=== PATIENT | male | born 1985 | race Caucasian/White ===

== ENCOUNTER 2021-02-05 08:32 | Emergency (ER) | payer MEDICARE, MEDICAID, SELFPAY ==
[2021-02-05] VITALS (14 sets, daily range): BP systolic 122–157; BP diastolic 81–97; PULSE 63–74; RESP 12–20; TEMP 36.7; O2SAT 99–100
--- NOTE | ~2021-02-05 | US_ITS ---
EXAMINATION: US scrotum doppler EXAM DATE: 02/05/2021 09:57 INDICATION: Intermittent testicular pain since July, worse the last 2 weeks. TECHNIQUE: Multiple grayscale and Doppler images of the testicles and scrotum were obtained bilateral ly. There is no prior study for comparison. FINDINGS: Right testicle measures 5.3 x 2.8 x 2.1 cm and is morphologically normal. Low resistance Doppler marion w confirmed. The epididymis is unremarkable. Trace right hydrocele. Left testicle measures 5.3 x 3.5 x 2.2 cm and is morphologically normal. Low resistance Doppler flow confirmed and symmetric to contralateral side. The epididymis is unremarkable. There is no hydrocel e or varicocele. IMPRESSION: Trace right hydrocele. Reviewed, dictated and finalized at location A. IMPRESSION: Trace right hydrocele.
--- NOTE | 2021-02-05 09:30 | ED.GENADULT ---
HPI - General Adult General Chief complaint: Unspecified Stated complaint: ? hernia Time Seen by Provider: 02/05/21 08:37 Source: patient Mode of arrival: ambulatory Limitations: no limitations History of Present Illness HPI narrative: This is a 35-year-old male that presents the emergency department for testicular pain. Reports it has been present for months. The pain is squeezing. Associated with painful erections and dysuria. Also reports that he has been having frequent bowel movements. Reports 6 stools a day. Denies fever, abnormal penile discharge or rashes, vomiting, hematochezia, or hematuria. Related Data Allergies Allergy/AdvReac Type Severity Reaction Status Date / Time sulfamethoxazole Allergy Mild RASH Verified 02/05/21 10:23 trimethoprim Allergy Mild RASH Verified 02/05/21 10:23 Review of Systems Review of Systems: Narrative: CONSTITUTIONAL: Denies fever GASTROINTESTINAL: Reports diarrhea. Denies abdominal pain, nausea, vomiting GENITOURINARY: Reports dysuria. Denies hematuria. SKIN: Denies rash All systems reviewed & are unremarkable except as noted in HPI and below PMFSH Past Medical History Medical History (Updated 02/05/21 @ 10:26 by Anisa Corcoran PA-C) History of anxiety History of Asperger's syndrome Social History Social History (Updated 02/05/21 @ 09:33 by Anisa Corcoran PA-C) Substance use: never Exam Narrative: Exam Narrative: GENERAL: Well-appearing, well-nourished, and in no acute distress. HEAD: Normocephalic, atraumatic. EYES: EOMI. CHEST: Clear to auscultation. No respiratory distress. No wheezes rales or rhonchi HEART: Regular rate and rhythm. No murmur heard. Normal peripheral pulses. ABDOMEN: Soft, nontender, nondistended, normal active bowel sounds. EXTREMITIES: Normal range of motion. No edema. SKIN: Warm, dry, no rash. NEURO: No focal deficits. Alert and oriented x3. PSYCH: Normal mood and affect MALE GENITAL: Normal external genitalia. Mild clear penile discharge. No abnormal rashes or lesions. Testicles are normal in size and nontender. No erythema or edema noted Course Vital Signs Vital signs: Vital Signs Temperature 98.1 F 02/05/21 08:47 Pulse Rate 72 02/05/21 08:47 Respiratory Rate 14 02/05/21 08:47 Blood Pressure 157/97 H 02/05/21 08:47 Pulse Oximetry 100 02/05/21 08:47 Temperature 98.1 F 02/05/21 08:47 Pulse Rate 72 02/05/21 08:47 Respiratory Rate 14 02/05/21 08:47 Blood Pressure 157/97 H 02/05/21 08:47 Pulse Oximetry 100 02/05/21 08:47 Medical Decision Making MDM Narrative Medical decision making narrative: Patient presents to the emergency department with multiple complaints. Reporting testicular pain, penile pain, and multiple episodes of diarrhea. All of which have been ongoing for months. He is afebrile and nontoxic-appearing. Vitals are stable. CBC is without leukocytosis. Does show thrombocytopenia with platelets of 86. Metabolic panel and lipase without concerning findings. UA is without evidence of infection. Chlamydia, gonorrhea and trichomonas were sent. Ultrasound of the scrotum shows a trace right hydrocele. Otherwise normal-appearing testes with good testicular blood flow. Patient was updated on case findings. Will be given hematology for follow-up for thrombocytopenia. Will also be given urology for follow-up of testicular pain. Reports he already has some follow-up with the GI doctor for his ongoing diarrhea. Does not want to be presumptively treated for STDs. Would like to follow-up for results. He is stable and felt appropriate for further outpatient evaluation. He was given warnings to return to the ER Vital Signs Vital Signs: Vital Signs Temperature 98.1 F 02/05/21 08:47 Pulse Rate 72 02/05/21 08:47 Respiratory Rate 14 02/05/21 08:47 Blood Pressure 157/97 H 02/05/21 08:47 Pulse Oximetry 100 02/05/21 08:47 Temperature 98.1 F 02/05/21 08:47 Pulse Rate 72 02/05
[2021-02-05 09:31] LABS: Basophils Percent Auto 0.8 % (0.2-1.2); Eosinophils Percent Auto 0.8 % (0-4.4); Hematocrit 47.5 % (42.0-52.0); Hemoglobin 16.9 g/dL (14.0-18.0); Immature Granulocyte Absolute 0.01 K/mm3 (0.00-0.031); Immature Granulocyte Percent A 0.2 % (0-0.5); Immature Platelet Fraction Pct 2.7 % (0.9-11.2); Lymphocytes Absolute Auto 1.24 K/mm3 (0.9-3.2); Lymphocytes Percent Auto 24.2 % (18.3-44.2); Mean Corpuscular HGB Conc 35.6 g/dl (32-36); Mean Platelet Volume 9.6 fl (7.4-10.4); Monocytes Absolute Auto 0.5 K/mm3 (0.1-0.6); Monocytes Percent Auto 9.9 % (2.6-8.5); Neutrophils Absolute Auto 3.3 K/mm3 (1.3-6.7); Neutrophils Percent Auto 64.1 % (45.5-73.1); Platelet Count Result 86 k/mm3 (150-375); Red Blood Count 5.28 M/mm3 (4.6-6.20); Red Cell Distribution Width 11.9 % (11.5-14.5); White Blood Count 5.1 K/mm3 (4.5-10.0)
[2021-02-05 09:32] LABS: Add Urine Microscopic? NO; Appearance Urine Clear (Clear); Bilirubin Urine Negative (Negative); Blood Urine Negative (Negative); Color Urine Straw (Yellow); Glucose Urine UA Negative (Negative); Ketones Urine Negative (Negative); Leukocyte Esterase Ur Negative LEU/UL (Negative); Nitrate Urine Negative (Negative); Protein Urine Negative (Negative); Urobilinogen Urine Negative mg/dL (<2.0)
[2021-02-05 09:40] LABS: Alanine Aminotransferase 34 U/L (4-50); Albumin Level 4.3 g/dL (3.5-5.1); Alkaline Phosphatase 50 U/L (38-126); Anion Gap 3 mmol/L (8-16); Aspartate Amino Transferase 42 U/L (17-59); Bilirubin,Total 1.3 mg/dL (0.2-1.3); Blood Urea Nitrogen 15 mg/dL (9-20); Calcium 9.4 mg/dL (8.4-10.2); Carbon Dioxide 31 mmol/L (22-30); Chloride 104 mmol/L (98-107); Estimated CRCL calculation 125 ml/min; Estimated Glomerular Filt Rate > 60; Glucose 88 mg/dL (75-110); Lipase 138 U/L (23-300); Sodium 138 mmol/L (137-145)
[2021-02-05 09:57] LABS: Specific Grav Ur 1.003 (1.001-1.035)
== END 2021-02-05 10:40 | disposition home or self-care (01) ==
PROVIDERS: Physician Assistant; Emergency Provider Emergency Medicine
DX: D69.6 Thrombocytopenia, unspecified (principal); N43.3 Hydrocele, unspecified
CPT/HCPCS: 36415; 76870; 80053; 81003; 83690; 85025; 85055; 87491; 87591; 87661; 93976; 99284

== ENCOUNTER 2023-07-07 06:43 | Emergency (ER) | payer MEDICARE, MEDICAID, SELFPAY ==
[2023-07-07] VITALS (9 sets, daily range): BP systolic 106–140; BP diastolic 59–88; PULSE 59–91; RESP 14–20; TEMP 36.6; O2SAT 98–100
--- NOTE | ~2023-07-07 | XR_ITS ---
Clinical Indication: Chest pain AP and lateral views of the chest: Comparison: 06/17/2009 Findings: The lungs are clear, without evidence of focal consolidation or pleural effusion. Cardiome diastinal silhouette is within normal limits. Bones and soft tissues are unremarkable. Impression: Normal chest. Reviewed, dictated and finalized at location . Impression: Normal chest.
--- NOTE | 2023-07-07 06:45 | ECG_ITS ---
Measurements Intervals Liberal Rate: 65 P: 48 MO: 145 QRS: -5 QRSD: 94 T: 33 QT: 371 QTc: 388 Interpretive Statements SINUS RHYTHM NORMAL ECG NO PREVIOUS ECG AVAILABLE FOR COMPARISON Electronically Signed On 07-07-2023 16:55:34 CDT by Leonel Logan M.D.
[2023-07-07] MEDS: ASPIRIN 81 MG CHEWABLE TABLET 324 MG PO (06:58)
[2023-07-07 07:09] LABS: Basophils Percent Auto 0.7 % (0.2-1.2); Eosinophils Absolute Auto 0.1 K/mm3 (0-0.3); Hematocrit 46.6 % (42.0-52.0); Hemoglobin 16.7 g/dL (14.0-18.0); Immature Granulocyte Absolute 0.01 K/mm3 (0.00-0.031); Immature Granulocyte Percent A 0.2 % (0-0.5); Immature Platelet Fraction Pct 2.9 % (0.9-11.2); Lymphocytes Absolute Auto 1.83 K/mm3 (0.9-3.2); Lymphocytes Percent Auto 31.4 % (18.3-44.2); Mean Corpuscular HGB Conc 35.8 g/dl (32-36); Mean Corpuscular Hemoglobin 31.5 pg (26-34); Mean Corpuscular Volume 87.9 fl (80-100); Mean Platelet Volume 9.8 fl (7.4-10.4); Monocytes Absolute Auto 0.5 K/mm3 (0.1-0.6); Monocytes Percent Auto 7.7 % (2.6-8.5); Neutrophils Absolute Auto 3.4 K/mm3 (1.3-6.7); Platelet Count Result 100 k/mm3 (150-375); Red Cell Distribution Width 11.7 % (11.5-14.5); White Blood Count 5.8 K/mm3 (4.5-10.0)
[2023-07-07 07:20] LABS: INR 1.1; Prothrombin Time 14.4 Seconds (11.1-14.7)
[2023-07-07 07:21] LABS: Alanine Aminotransferase 17 U/L (6-50); Albumin Level 4.6 g/dL (3.5-5.1); Alkaline Phosphatase 57 U/L (38-126); Anion Gap 12 mmol/L (8-16); Aspartate Amino Transferase 28 U/L (17-59); Bilirubin,Total 2.2 mg/dL (0.2-1.3); Blood Urea Nitrogen 11 mg/dL (9-20); Carbon Dioxide 22 mmol/L (22-30); Chloride 104 mmol/L (98-107); Estimated CRCL calculation 94 ml/min; Estimated Glomerular Filt Rate > 60; Glucose 101 mg/dL (65-110); Lipase 189 U/L (23-300); Partial Thromboplastin Time 29.4 SECONDS (22.3-36.8); Potassium 3.6 mmol/L (3.4-5.0); Sodium 138 mmol/L (137-145)
[2023-07-07 07:32] LABS: Troponin I < 0.012 ng/mL (0.000-0.034)
--- NOTE | 2023-07-07 08:24 | ED.CHESTPAIN ---
HPI - Chest Pain General Chief Complaint: Chest Pain Stated Complaint: Chest pain Time Seen by Provider: 07/07/23 06:59 History of Present Illness HPI narrative: Patient is a 38-year-old male who presents ER with left-sided chest pain. Has been occurring over the last week. It occurs for several seconds at a time and then will occur every 30 minutes. No recent trauma. No known aggravating factors. Usually worse in the evenings when he lays down. He does get sweaty when this occurs. He is unsure if that is related to anxiety. No dyspnea. No pain with deep breath or hemoptysis. No runny nose or sore throat or productive cough. No personal history of heart disease. Reports he has 2 grandfathers that had heart issues but no one with early cardiac disease. Related Data Allergies Allergy/AdvReac Type Severity Reaction Status Date / Time sulfamethoxazole Allergy Mild RASH Verified 02/09/21 11:01 trimethoprim Allergy Mild RASH Verified 02/09/21 11:01 sulfamethizole Allergy Unknown Verified 02/09/21 11:01 Review of Systems Review of Systems: All systems reviewed & are unremarkable except as noted in HPI and below Constitutional: Constitutional: Denies chills, Denies fatigue and Denies fever(s) Comments: Positive diaphoresis ENT: Denies nasal congestion and Denies sore throat Cardiovascular: Cardiovascular: Reports chest pain, Denies rapid heart rate and Denies radiating jaw, neck or arm pain Gastrointestinal: Gastrointestinal: Denies abdominal pain, Denies diarrhea, Denies nausea and Denies vomiting Musculoskeletal: Musculoskeletal: Denies back pain, Denies myalgias and Denies arthralgias Psychiatric: Psychiatric: Reports anxiety PMFSH Past Medical History Medical History (Updated 07/07/23 @ 10:46 by Shilo Currie MD) History of anxiety History of Asperger's syndrome Surgical History Surgical History (Updated 07/07/23 @ 08:25 by Shilo Currie MD) No history of previous surgery Family History Family History (System 02/09/21 @ 11:01 by Joy Hernandez) Mother Patient's mother is in good health Father Patient's father is in good health Social History Social History (System 02/09/21 @ 11:01 by Joy Hernandez) Smoking status: Former smoker Alcohol intake: never Substance use: never Exam Narrative: GENERAL: Well-appearing, well-nourished, and in no acute distress. HEAD: Normocephalic, atraumatic. EYES: PERRL and EOMI. ENT: Mucous membranes moist. CHEST: Clear to auscultation. No respiratory distress. HEART: Regular rate and rhythm. Normal peripheral pulses. ABDOMEN: Soft, nontender, nondistended. EXTREMITIES: Normal range of motion. No edema. SKIN: Warm, dry, no rash. NEURO: Alert and oriented x3. PSYCH: Normal mood and affect. Course Course Emergency Course: Patient resting comfortably. No issues. Discussed lab results including negative troponin x2 and nonischemic EKG. Patient appropriate for discharge home. Patient reports history of chronic thrombocytopenia, he saw hematology and was worked up and there was no issue. Vital Signs Vital signs: Vital Signs Pulse Rate 91 07/07/23 07:06 Temperature 97.8 F 07/07/23 07:07 Pulse Rate 63 07/07/23 09:45 Respiratory Rate 17 07/07/23 09:45 Blood Pressure 124/81 07/07/23 09:45 Pulse Oximetry 100 07/07/23 09:45 Oxygen Delivery Room Air 07/07/23 07:50 MDM - Chest Pain Lab Data 07/07/23 07:02 07/07/23 07:02 Labs: Lab Results 07/07/23 07/07/23 Range/Units 07:02 09:38 WBC 5.8 (4.5-10.0) K/mm3 RBC 5.30 (4.6-6.20) M/mm3 Hgb 16.7 (14.0-18.0) g/dL Hct 46.6 (42.0-52.0) % MCV 87.9 (80-100) fl MCH 31.5 (26-34) pg MCHC 35.8 (32-36) g/dl RDW 11.7 (11.5-14.5) % Plt Count 100 L (150-375) k/mm3 MPV 9.8 (7.4-10.4) fl Immature Gran % (Auto) 0.2 (0-0.5) % Neut % (Auto) 59.0 (45.5-73.1) % Lym
[2023-07-07 10:04] LABS: Troponin I < 0.012 ng/mL (0.000-0.034)
== END 2023-07-07 11:00 | disposition home or self-care (01) ==
PROVIDERS: Emergency Medicine; Emergency Provider Emergency Medicine
DX: R07.9 Chest pain, unspecified (principal); F84.5 Asperger's syndrome; Z87.891 Personal history of nicotine dependence
CPT/HCPCS: 36415; 71046; 80053; 83690; 84484; 85025; 85055; 85610; 85730; 93005; 99284; A9270

== ENCOUNTER 2023-09-03 11:08 | Outpatient (CLI) | payer MEDICARE, MEDICAID, SELFPAY ==
[2023-09-03 11:37] LABS: Basophils Percent Auto 0.4 % (0.2-1.2); Eosinophils Percent Auto 0.6 % (0-4.4); Hematocrit 45.4 % (42.0-52.0); Hemoglobin 15.9 g/dL (14.0-18.0); Immature Granulocyte Absolute 0.03 K/mm3 (0.00-0.031); Immature Granulocyte Percent A 0.4 % (0-0.5); Immature Platelet Fraction Pct 3.5 % (0.9-11.2); Lymphocytes Absolute Auto 1.56 K/mm3 (0.9-3.2); Lymphocytes Percent Auto 21.5 % (18.3-44.2); Mean Corpuscular Hemoglobin 30.8 pg (26-34); Mean Platelet Volume 9.5 fl (7.4-10.4); Monocytes Absolute Auto 0.4 K/mm3 (0.1-0.6); Monocytes Percent Auto 5.9 % (2.6-8.5); Neutrophils Absolute Auto 5.2 K/mm3 (1.3-6.7); Neutrophils Percent Auto 71.2 % (45.5-73.1); Platelet Count Result 81 k/mm3 (150-375); Red Blood Count 5.16 M/mm3 (4.6-6.20); White Blood Count 7.3 K/mm3 (4.5-10.0)
[2023-09-03 17:02] LABS: Iron 86 ug/dL (49-181)
[2023-09-03 17:05] LABS: Alanine Aminotransferase 19 U/L (6-50); Albumin Level 4.6 g/dL (3.5-5.1); Alkaline Phosphatase 47 U/L (38-126); Anion Gap 11 mmol/L (8-16); Aspartate Amino Transferase 31 U/L (17-59); Bilirubin,Total 1.6 mg/dL (0.2-1.3); Blood Urea Nitrogen 11 mg/dL (9-20); Calcium 9.5 mg/dL (8.4-10.2); Carbon Dioxide 26 mmol/L (22-30); Chloride 102 mmol/L (98-107); Estimated Glomerular Filt Rate > 60; Glucose 86 mg/dL (65-110); Lactate Dehydrogenase 178 U/L (120-246); Potassium 4.1 mmol/L (3.4-5.0); Sodium 139 mmol/L (137-145)
[2023-09-03 17:11] LABS: Percent Iron Saturation 31 % (20-50)
[2023-09-06 06:43] LABS: Methylmalonic Acid 52 nmol/L (87-318)
[2023-09-09 09:53] LABS: Soluble Transferrin Receptor 1.37 mg/L (0.76-1.76)
[2023-09-09 22:58] LABS: Platelet Antibody, Direct NEGATIVE (NEGATIVE)
== END 2023-09-03 11:09 | disposition home or self-care (01) ==
PROVIDERS: Nurse Practitioner Family; Visit Provider Internal Medicine Hematology & Oncology
DX: D69.59 Other secondary thrombocytopenia (principal)
CPT/HCPCS: 36415; 80053; 82607; 82728; 82746; 83540; 83550; 83615; 83921; 84238; 85025; 85055; 86023

== ENCOUNTER 2023-09-18 10:04 | Outpatient (CLI) | payer MEDICARE, MEDICAID, SELFPAY ==
--- NOTE | ~2023-09-18 | US_ITS ---
US abdomen complete EXAMINATION: US Abdomen Complete INDICATION: Secondary thrombocytopenia PROCEDURE: Realtime High Resolution abdomen ultrasound. COMPARISON: No prior studies for comparison FINDINGS: Gallbladder within normal limits. No gallstones, pericholecystic fluid, gallbladder wall t hickening or biliary dilatation. Common bile duct measures 3 mm. Liver echotexture within normal limits without focal mass. Pancreas within normal limits. Pancreati c tail is obscured by bowel gas. Spleen is unremarkeable. Renal echotexture is within normal limits bilaterally without hydronephrosis, contour deforming mass or renal stone. Right kidney measures 11.2 cm. Left kidney measures 10.7 cm. Visualized aspects of the aorta and IVC are within normal limits. Portal vein is patent. No sonograph ic Macias's sign indicated by the technologist. IMPRESSION: 1: Normal abdominal ultrasound. Reviewed, dictated and finalized at [facility]. T INSPECTOR
== END 2023-09-18 10:05 | disposition home or self-care (01) ==
PROVIDERS: Visit Provider Internal Medicine Hematology & Oncology
DX: D69.59 Other secondary thrombocytopenia (principal)
CPT/HCPCS: 76700